=== PATIENT | female | born 1980 | race American Indian/Alaskan Native ===

== ENCOUNTER 2016-11-24 20:25 | Emergency (ER) | payer OTHER ==
[2016-11-24 21:06] VITALS: BP 131/89; PULSE 72; RESP 16; TEMP 98.4; O2SAT 100
--- NOTE | 2016-11-24 21:24 | C.PDOC ---
History Of Present Illness Patient sts she was drinking a [employer] Chocolate chip Frappe when she tested something unusual in her drink and she found a black pepper like substance there. Patient sts she noticed that [employer] workers were laughing when they gave her drink and she suspected that they put pepper into her drink trying to make a joke. Patient sts she felt disgusted and made herself to vomit. Patient has no complains at this time, but she wants to be checked. Time Seen by Provider: 11/24/16 21:10 Chief Complaint (Nursing): Medical Clearance Past Medical History Reviewed: Historical Data, Nursing Documentation, Vital Signs Vital Signs: Last Vital Signs Temp 98.4 F 11/24/16 21:01 Pulse 72 11/24/16 21:01 Resp 16 11/24/16 21:01 BP 131/89 11/24/16 21:01 Pulse Ox 100 11/24/16 21:24 - Medical History PMH: No Chronic Diseases Family History: States: Unknown Family Hx - Social History Hx Tobacco Use: No Hx Alcohol Use: No Hx Substance Use: No - Immunization History Hx Tetanus Toxoid Vaccination: No Hx Influenza Vaccination: No Hx Pneumococcal Vaccination: No Review Of Systems Except As Marked, All Systems Reviewed And Found Negative. Physical Exam - Physical Exam Appears: Well, Non-toxic, No Acute Distress Skin: Normal Color, Dry Head: Atraumatic, Normacephalic Eye(s): bilateral: Normal Inspection Oral Mucosa: Moist, No Drooling, No Trismus Tongue: Normal Appearing, No Swelling, No Lesions Lips: Normal Appearing, No Swelling, No Lesions Gingiva: Normal Appearing, No Erythema, No Ulceration Throat: Normal, No Erythema, No Exudate, No Drooling Extremity: Normal ROM Neurological/Psych: Oriented x3, Normal Speech, Normal Cognition ED Course And Treatment O2 Sat by Pulse Oximetry: 100 Progress Note: Patient doesn't want Urine drug screen test. She is totally asymptomatic in ED and she was d/c home. Disposition - Disposition Disposition: HOME/ ROUTINE Disposition Time: 21:21 Condition: GOOD Additional Instructions: Follow up with PMD within 1-2 days. Return to ED if feel worse. Forms: General Discharge Instructions - Clinical Impression Clinical Impression: Medical assessment
== END 2016-11-24 22:04 | disposition home or self-care (01) ==
LOC: C.ER 20:25
DX: Z00.00 Encounter for general adult medical examination without abnormal findings (principal)

== ENCOUNTER 2018-06-22 07:59 | Emergency (ER) | payer OTHER ==
[2018-06-22 08:03] VITALS: BMI 36.0
[2018-06-22 08:08] VITALS: BP 133/85; PULSE 77; RESP 17; TEMP 98.8; O2SAT 98
[2018-06-22] MEDS ORDERED: Tobramycin 0.3% OPHT SOLN OD STA (08:49)
--- NOTE | 2018-06-22 08:51 | C.PDOC ---
History Of Present Illness 38 y/o female presents to ED for evaluation of irritated right eye since yesterday after she felt "something flew in eye". Patient states she tried OTC eye drops with no improvement and denies vision changes, eye discharge, fever, chills or any other complaints at this time. Time Seen by Provider: 06/22/18 08:06 Chief Complaint (Nursing): Eye Problem History Per: Patient History/Exam Limitations: no limitations Onset/Duration Of Symptoms: Days Current Symptoms Are (Timing): Still Present Past Medical History Reviewed: Historical Data, Nursing Documentation, Vital Signs Vital Signs: Last Vital Signs Temp 98.8 F 06/22/18 08:03 Pulse 77 06/22/18 08:03 Resp 17 06/22/18 08:03 BP 133/85 06/22/18 08:03 Pulse Ox 98 06/22/18 08:03 - Medical History PMH: No Chronic Diseases Surgical History: No Surg Hx Family History: States: No Known Family Hx - Social History Hx Tobacco Use: No Hx Alcohol Use: Yes Hx Substance Use: No - Immunization History Hx Tetanus Toxoid Vaccination: No Hx Influenza Vaccination: No Hx Pneumococcal Vaccination: No Review Of Systems Constitutional: Negative for: Fever, Chills Eyes: Positive for: Pain, Redness. Negative for: Vision Change, Eyelid Inflammation Skin: Negative for: Rash Physical Exam - Physical Exam Appears: Non-toxic, No Acute Distress Skin: Warm, Dry, No Rash Head: Atraumatic, Normacephalic Eye(s): right: PERRL, EOMI, Other (Lateral aspect of eye injected. No foreign body noted), left: Normal Inspection Ear(s): Bilateral: Normal Oral Mucosa: Moist Neck: Supple Neurological/Psych: Oriented x3, Normal Speech, Normal Cognition ED Course And Treatment O2 Sat by Pulse Oximetry: 98 (RA) Pulse Ox Interpretation: Normal Progress Note: No fluorescene stain uptake, Tobrex drops Reassessment Condition: Improved Disposition Counseled Patient/Family Regarding: Diagnosis, Rx Given - Disposition Referrals: [facility] [place] [Outside] Steven Newman MD [Staff Provider] - Disposition: HOME/ ROUTINE Disposition Time: 09:00 Condition: STABLE Additional Instructions: Follow up with clinic for further evaluation Follow up with eye MD Prescriptions: Tobramycin 0.3% [Tobrex 0.3% Ophth Soln] 1 drop OD Q6 #1 bottle Instructions: Conjunctivitis (Noninfectious Pin[place]e) Forms: [facility] (Austrian) - POA Present On Arrival: None - Clinical Impression Clinical Impression: Eye irritation - PA / INSTRUMENT MAKER APPRENTICE / Resident Statement MD/DO has reviewed & agrees with the documentation as recorded. - Scribe Statement The provider has reviewed the documentation as recorded by the Scribe Dennis Chua All medical record entries made by the Shanell were at my direction and personally dictated by me. I have reviewed the chart and agree that the record accurately reflects my personal performance of the history, physical exam, medical decision making, and the department course for this patient. I have also personally directed, reviewed, and agree with the discharge instructions and disposition.
--- NOTE | 2018-06-22 08:53 | C.PDOC ---
Time Seen by Provider: 06/22/18 08:06 Chief Complaint (Nursing): Eye Problem Past Medical History Vital Signs: Last Vital Signs Temp 98.8 F 06/22/18 08:03 Pulse 77 06/22/18 08:03 Resp 17 06/22/18 08:03 BP 133/85 06/22/18 08:03 Pulse Ox 98 06/22/18 08:03 Family History: States: Unknown Family Hx - Social History Hx Tobacco Use: No Hx Alcohol Use: Yes Hx Substance Use: No - Immunization History Hx Tetanus Toxoid Vaccination: No Hx Influenza Vaccination: No Hx Pneumococcal Vaccination: No ED Course And Treatment O2 Sat by Pulse Oximetry: 98 Disposition Counseled Patient/Family Regarding: Diagnosis, Rx Given - Disposition Referrals: [facility] [place] [Outside] Disposition: HOME/ ROUTINE Disposition Time: 09:00 Condition: STABLE Prescriptions: Tobramycin 0.3% [Tobrex 0.3% Ophth Soln] 1 drop OD Q6 #1 bottle
== END 2018-06-22 09:17 | disposition home or self-care (01) ==
LOC: C.ER 07:59
DX: H57.89 Other specified disorders of eye and adnexa (principal)